=== PATIENT | female | born 2000 | race Caucasian/White ===

== ENCOUNTER → 2024-02-09 23:59 | Outpatient (BNV) | payer OTHER, SELFPAY ==
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
== END ==
PROVIDERS: PCP Nurse Practitioner Family; Visit Provider Nurse Practitioner Family
DX: Z30.09 Encounter for other general counseling and advice on contraception (principal); Z71.89 Other specified counseling; Z59.01 Sheltered homelessness; F41.9 Anxiety disorder, unspecified; F32.A Depression, unspecified
CPT/HCPCS: 96160; 99205

== ENCOUNTER → 2024-02-23 10:30 | Outpatient (BNV) | payer OTHER, SELFPAY ==
--- NOTE | 2024-02-23 10:31 | A.OFFVIS_ITS ---
Intake Visit Reasons: Amb Documentation HPI Comments Details: chiki is here 2 x - complaining of 'migraine'. she has no aura, but just a headache with photophobia and noise is bothering her given 2 aleve. 1/2 came back to rest and get away from noise. offered sleep and a cold pack. she is resting w/ cold pack and requested water. ros: otherwise no complaints. PE see below REPLACED BY [facility] Medical History Ectopic , tubal Living in snf ADHD Bipolar 1 disorder Anxiety and depression Asthma Review of Systems Const Details: no aura, though states that her eyes hurt - everytihng in her head hurts All systems reviewed & are unremarkable except as noted in HPI and below Eyes Reports as per HPI and Reports no additional complaints ENT Reports no additional complaints Card Reports no additional complaints Resp Reports no additional complaints GI Details: no Nausea or vomiting Musc Reports no additional complaints Psych Reports no additional complaints Physical Exam Const Other: squinting and holding head. walking well, no other observed issue General: cooperative and in distress Nutritional Appearance: average body habitus Orientation/consciousness: oriented to person, oriented to place and oriented to time HEENT Other: no bright lights to eyes at this time - all appears normal Ears: hearing grossly normal bilaterally Eyes General: appearance normal, both eyes and all related structures Resp Effort & Inspection: normal respiratory effort Neuro General: oriented to person, oriented to place and oriented to time Cognition (Neuro): normal cognition Gait exam (Neuro): Normal gait present Motor exam (neuro): no tremor noted Psych Appearance: grossly normal Thought process: Normal thought process present Assessment & Plan Assessment & Plan (1) Headache around the eyes: Code(s): R51.9 - Headache, unspecified Category: Medical Plan 2 aleve, and rest excused from classes Coding Level of Care Code Est Pt Level 3 (52509) Diagnoses Headache around the eyes R51.9 Time Spent (min) 25 Comment support and coord care w onsite counselor
== END ==
PROVIDERS: PCP Nurse Practitioner Family; Visit Provider Nurse Practitioner Family
DX: R51.9 Headache, unspecified (principal)
CPT/HCPCS: 99213

== ENCOUNTER 2024-03-28 11:46 | Emergency (ER) | payer OTHER, SELFPAY ==
--- NOTE | ~2024-03-28 | XR_ITS ---
EXAMINATION: XR CHEST CLINICAL INFORMATION: cough 2 weeks COMPARISON: None available. TECHNIQUE: Frontal view of the chest was obtained. FINDINGS: No consolidation, pleural effusion or pneumothorax. Poor inspiration. Cardiomediastinal silhouette is normal. Osseous structures are intact. XR/XR chest 1V IMPRESSION: No acute airspace disease based upon this x-ray. Electronically signed by: Rj Mckenna MD 03/28/2024 01:45 PM [facility]
[2024-03-28 12:26] VITALS: BP 109/51; PULSE 99; RESP 18; TEMP 36.8; O2SAT 99; BMI 28.8
--- NOTE | 2024-03-28 12:29 | ED.GENADULT ---
HPI - General Adult General Chief complaint: Upper Respiratory Symptoms Stated complaint: dizzy, cough, allergies Time Seen by Provider: 03/28/24 17:31 History of Present Illness HPI narrative: Patient complains of runny nose cough feels a little dizzy described as just feeling lightheaded sometimes especially after coughing for about a week, she is not dizzy now, she also has had some shortness of breath and wheezing typical of her asthma and is used her inhaler frequently She denies any chest pain, the cough is nonproductive, there is no blood in the sputum, there is no sore throat no difficulty swallowing there is a runny nose, there is no sinus pain, no ear pain No abdominal pain no nausea vomiting or diarrhea no dysuria or frequency, no rash no confusion no fainting no feeling faint no headache no stiff neck Related Data Previous Rx's ?Medication ?Instructions ?Recorded albuterol sulfate 2.5 mg/3 mL 2.5 mg (3 mL) inhalation Q4-6H PRN 03/28/24 (0.083 %) solution for nebulization shortness of breath or wheezing #75 mL albuterol sulfate 90 mcg/actuation 2 puff inhalation Q4-6H PRN 03/28/24 aerosol inhaler shortness of breath or wheezing #8.5 grams ibuprofen 600 mg tablet 600 mg PO Q6H PRN pain #20 tabs 03/28/24 prednisone 20 mg tablet 60 mg (3 x 20 mg) PO DAILY 5 days 03/28/24 #15 tabs Allergies Allergy/AdvReac Type Severity Reaction Status Date / Time No Known Allergies Allergy Verified 03/28/24 12:28 [facility] Past Medical History Source: nursing notes reviewed Medical History Ectopic , tubal Living in skilled nursing ADHD Bipolar 1 disorder Anxiety and depression Asthma Social History Social History Advance Directives: No Advance Directives Information Provided: Yes Do you have a plan to hurt others: No Plan Physical Exam ED Vital Signs: Vital Signs - 24 hr 03/28/24 12:26 Temperature 98.2 F Pulse Rate 99 Respiratory Rate 18 Blood Pressure 109/51 L Pulse Oximetry 99 Oxygen Delivery Method Room Air BMI result Body Mass Index 28.8 General appearance comfortable no acute distress Eyes no redness or discharge The ears are clear The pharynx is clear no redness swelling or exudate voice is normal Neck is supple The chest has mild wheezes bilateral with good full air entry no diminished breath sounds no decreased expiration no respiratory distress The heart no murmur Abdomen soft nontender Extremities full range motion x4, no calf tenderness or swelling Skin no rash Neuro gait and balance are normal, interaction comprehension and expression are normal, motor is 5/5 x4 sensation is intact and symmetrical cranial nerves 2-12 intact as tested, cerebellar exam with [id number] is totally normal Course Course Course Narrative: This is a rapid medical exam performed by Isaias Lau NP: Additional HPI, ROS, PE not included below will be deferred to primary provider. Patient is a 24-year-old female presenting with complaint of cough, congestion, dizziness for over a week. Covid test at home was neg. Plan: viral and strep swabs, cxr Chest x-ray was normal with no evidence of pneumonia and patient's lungs were clear at this time no respiratory distress The viral panel including COVID and flu and strep was negative test was negative Patient was very well-appearing and likely has a viral illness with a mild asthma flare Dizziness was not room spinning no syncope no headache no neurologic deficit no fainting or feeling faint no palpitations and was only after coughing spells so not likely to be cardiac or neurologic Medical Decision Making Lab Data Labs: Lab Results 03/28/24 03/28/24 Range/Units 13:22 14:08 Urine Test NEGATIVE (NEGATIVE) Influenza Type A (PCR) NEGATIVE (Negative) Influenza Type B (PCR) NEGATIVE (Negative) RSV RNA Qual (PCR) NEGATIVE (Negative) SARS-CoV-2 RNA (RT-PCR) NEGATIVE (Negative) S. pyogenes GrpA GARY Negative (Negative) Discharge Plan Discharge Clinical Impression: Upper respiratory infection, Asthma Patient Disposition: Home, Self-Care Additional Instructions: Your chest x-ray was negative, your viral testing for COVID and flu was negative, your physical exam and vital signs were fine Likely you have a mild asthma flare caused by a cold or mild viral infection Return any time for difficulty breathing any worse condition any concerns You can use Tylenol or Motrin if needed for any fevers or body aches Drink plenty of fluids We prescribed prednisone which will reduce inflammation that causes wheezing and asthma as well as albuterol Prescriptions: New prednisone 20 mg tablet 60 mg PO DAILY 5 Days Qty: 15 0RF albuterol sulfate 90 mcg/actuation HFA aerosol inhaler 2 puff inhalation Q4-6H PRN (Reason: shortness of breath or wheezing) Qty: 8.5 0RF albuterol sulfate 2.5 mg /3 mL (0.083 %) solution for nebulization 2.5 mg inhalation Q4-6H PRN (Reason: shortness of breath or wheezing) Qty: 75 0RF ibuprofen 600 mg tablet 600 mg PO Q6H PRN (Reason: pain) Qty: 20 0RF Print Language: Brazilian
[2024-03-28 14:00] LABS: IDNOW Serial# 08D9AD1C; Strep A Nucleic Acid Negative (Negative)
[2024-03-28 14:06] LABS: Influenza A PCR NEGATIVE (Negative); Influenza B PCR NEGATIVE (Negative); Resp Syncy Virus RNA Qual PCR NEGATIVE (Negative); SARS COV2 PCR INHOUSE NEGATIVE (Negative)
[2024-03-28 14:16] LABS: UPreg QC Valid YES; Urine Pregnancy NEGATIVE (NEGATIVE)
== END 2024-03-28 18:54 | disposition home or self-care (01) ==
PROVIDERS: Registered Nurse Emergency; Emergency Provider Emergency Medicine; PCP Nurse Practitioner Family
DX: J06.9 Acute upper respiratory infection, unspecified (principal); J45.909 Unspecified asthma, uncomplicated; R05.9 Cough, unspecified
CPT/HCPCS: 0241U; 71045; 81025; 87651; 99282; 99283

== ENCOUNTER → 2024-03-28 12:30 | Outpatient (BNV) | payer OTHER, SELFPAY | PROVIDERS: PCP Nurse Practitioner Family; Visit Provider Radiology Diagnostic Radiology | DX: R05.9 Cough, unspecified (principal) | CPT/HCPCS: 71045 ==

== ENCOUNTER → 2024-04-17 10:38 | Outpatient (BNV) | payer OTHER, SELFPAY ==
--- NOTE | 2024-04-17 10:38 | A.OFFVIS_ITS ---
Intake Visit Reasons: Amb Documentation Allergies No Known Allergies Allergy (Verified 03/28/24 12:28) HPI Comments Details: student stops from class (2x) in complaining of unbearable jaw pain. she had a root canal and is now waiting for more work to be done. she has a hole in her tooth on the lower molars. she states that she is not but is no longer celibate. 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 she took 3 ibuprofen and used dentak on the pain. with relief. she come back in 1/2 hr to say that she has a new lump under her tongue - it is a normal variant but she is vigilant because of the numbing - no concerns [facility] Medical History Ectopic , tubal Living in [facility] ADHD Bipolar 1 disorder Anxiety and depression Asthma Social History Advance Directives: No Advance Directives Information Provided: Yes Do you have a plan to hurt others: No Plan Review of Systems Const Details: Counseling visit: All systems reviewed & are unremarkable except as noted in HPI and below Reports as per HPI Resp Reports as per HPI GI Reports as per HPI Musc Reports as per HPI Neuro Reports as per HPI Psych Reports as per HPI Physical Exam Const General: cooperative, healthy appearing and in distress (uncomfortble w/ jaw pain) moderate Nutritional Appearance: well nourished Orientation/consciousness: oriented to person Limitations: no limitations HEENT Mouth: Normal oral and palatal mucosa present, tongue normal and moist mucous membranes Teeth and gingiva: fair dentition (hole in ?30 otherwise everything looks ok no redness, swelling, odor) Throat: Yes posterior oropharynx normal Eyes Other: wnl Chest Other: easy breathing Resp Effort & Inspection: normal respiratory effort and able to speak in complete sentences Skin Other: normal in appearance Neuro General: oriented to person Psych Other: see HPI Appearance: grossly normal Mental Status: mental status grossly normal Speech and movement: Clear speech present Affect: Anxious affect present Attitude: cooperative Thought process: Normal thought process present Assessment & Plan Assessment & Plan (1) Jaw pain, non-TMJ: Code(s): R68.84 - Jaw pain Category: Medical (2) Nontraumatic broken or cracked tooth: Code(s): K03.81 - Cracked tooth Category: Medical Plan ibuprofen x 3 now and dentak applied. returned to my office w/ questions about area under tongue. no concerns. suggested that she sign up tomorrow (coming out of class on a pass at moment) to discuss control as she stated ca sually that she is no longer celibate Coding Level of Care Code Est Pt Level 3 (34804) Diagnoses Jaw pain, non-TMJ R68.84 Nontraumatic broken or cracked tooth K03.81 Time Spent (min) 25 Comment 2 visits - counseling and coord care w/ her onsite counselor
== END ==
PROVIDERS: PCP Nurse Practitioner Family; Visit Provider Nurse Practitioner Family
DX: R68.84 Jaw pain (principal); K03.81 Cracked tooth
CPT/HCPCS: 99213

== ENCOUNTER → 2024-04-18 10:14 | Outpatient (BNV) | payer OTHER, SELFPAY ==
--- NOTE | 2024-04-18 10:14 | A.OFFVIS_ITS ---
Intake Visit Reasons: Amb Documentation Allergies No Known Allergies Allergy (Verified 03/28/24 12:28) HPI Comments Details: student stopping in - 'i don't really want to talk a bout control'. she has dental pain still but it seems better - she agreed to take 400mg ibuprofen now- and has extra to take later (yesterday rec'd call re: student wanted to take more - called dentist and they didn't make any recommendations) she has a follow up in 1 month. she states re: control that she doesn't like the hormones, and if she were to get - it would be ok. she is with someone she has known for a long time but doesn't really care for him...it's just for fun. he uses condoms but 2 weeks ago, it fell off and he continued having sex. she would chance plan b if she had it but couldn't afford it. agreed to my putting in an rx and she will take it as a back up - not as regular control. longer conversation about creating family w/ man that she 'doesn't see in that way'. [facility] Medical History Ectopic , tubal Living in penitentiary ADHD Bipolar 1 disorder Anxiety and depression Asthma Social History Advance Directives: No Advance Directives Information Provided: Yes Do you have a plan to hurt others: No Plan Review of Systems Const Details: Counseling visit: All systems reviewed & are unremarkable except as noted in HPI and below Reports as per HPI Resp Reports as per HPI GI Reports as per HPI Musc Reports as per HPI Neuro Reports as per HPI Psych Reports as per HPI Physical Exam Const General: cooperative, healthy appearing and no acute distress Nutritional Appearance: well nourished Orientation/consciousness: oriented to person Limitations: no limitations HEENT Other: wnl Eyes Other: wnl Chest Other: easy breathing Resp Effort & Inspection: able to speak in complete sentences Skin Other: normal in appearance Neuro General: oriented to person Psych Other: see HPI Mental Status: mental status grossly normal Speech and movement: Clear speech present Attitude: cooperative Thought process: Normal thought process present Assessment & Plan Assessment & Plan (1) control counseling: Code(s): Z30.09 - Encounter for other general counseling and advice on contraception Category: Medical (2) Counseling and coordination of care: Code(s): Z71.89 - Other specified counseling Category: Medical (3) Living in penitentiary: Code(s): Z59.01 - Sheltered homelessness Category: Social Hx (4) Jaw pain, non-TMJ: Code(s): R68.84 - Jaw pain Category: Medical Plan extensive counseling - and coord care w/ her on-site counselor as the control decison is a bit imperfect for her lifestyle...consistent w/ her thinking. given ibuprofen for pain now and teachign re: further intervention - needs dental appt. Medications: New levonorgestrel (Plan B One-Step) 1.5 mg PO ONCE 1 tab 6RF Coding Level of Care Code Est Pt Level 4 (31717) Diagnoses control counseling Z30.09 Counseling and coordination of care Z71.89 Living in penitentiary Z59.01 Jaw pain, non-TMJ R68.84 Time Spent (min) 30 Comment counseling/coord care w onsite production support analyst
== END ==
PROVIDERS: PCP Nurse Practitioner Family; Visit Provider Nurse Practitioner Family
DX: Z30.09 Encounter for other general counseling and advice on contraception (principal); Z71.89 Other specified counseling; Z59.01 Sheltered homelessness; R68.84 Jaw pain
CPT/HCPCS: 99214

== ENCOUNTER → 2024-04-25 10:14 | Outpatient (BNV) | payer OTHER, SELFPAY ==
--- NOTE | 2024-04-25 10:14 | MHC.OFFVIS ---
Intake Visit Reasons: Amb Documentation Allergies No Known Allergies Allergy (Verified 03/28/24 12:28) HPI Comments Details: student is in counselors office - she wanted to sign up for me for concerns but just urinated (and has arrived in school late)...david states that she is distressed and needing mental health supports - she declines talking at length at the moment as she need to get to class and doesn't want to get more upset. I reviewed her phq 9 and crafft. [facility] Medical History Ectopic , tubal Living in group home ADHD Bipolar 1 disorder Anxiety and depression Asthma Social History Advance Directives: No Advance Directives Information Provided: Yes Do you have a plan to hurt others: No Plan Review of Systems Const Details: Counseling visit: All systems reviewed & are unremarkable except as noted in HPI and below Reports as per HPI Resp Reports as per HPI GI Reports as per HPI Musc Reports as per HPI Neuro Reports as per HPI Psych Reports as per HPI Physical Exam Const General: cooperative, healthy appearing and in distress (seems stressed and tears w/ minor discussion about it) moderate Nutritional Appearance: well nourished Orientation/consciousness: oriented to person Limitations: no limitations HEENT Other: wnl Eyes Other: wnl Chest Other: easy breathing Resp Effort & Inspection: able to speak in complete sentences Skin Other: normal in appearance Neuro General: oriented to person Psych Other: see HPI Mental Status: mental status grossly normal Speech and movement: Clear speech present Attitude: cooperative Thought process: Normal thought process present Quality Reporting (2019) Depression/Bipolar (159/160/161/177) PHQ-9: Total score: 18 Assessment & Plan Assessment & Plan (1) Counseling and coordination of care: Code(s): Z71.89 - Other specified counseling Category: Medical (2) Living in group home: Code(s): Z59.01 - Sheltered homelessness Category: Social Hx (3) Anxiety and depression: Code(s): F41.9 - Anxiety disorder, unspecified; F32.A - Depression, unspecified Category: Medical (4) control counseling: Code(s): Z30.09 - Encounter for other general counseling and advice on contraception Category: Medical Plan spoke at length w/ leonard langley her onsite counselor - she is engaged in more direct support. we will network around her as things seem a bit unstable and she has a lot of vulnerability. she will sign up for me tmorrow if she wants to discuss in more detail risk - still unclear - she and partner use condoms and she has plan b but hasn't had normal period yet. - she will return for this test if desired tomorrow Coding Level of Care Code Est Pt Level 3 (61087) Diagnoses Counseling and coordination of care Z71.89 Living in group home Z59.01 Anxiety and depression F41.9; F32.A control counseling Z30.09 Additional Codes PHQ-9 - 88308 - PHQ-9 Billing: Yes ([id number]) HECTOR Assessment Charge - Liliant: HECTOR [id number] ([id number]) Time Spent (min) 25 Comment counseling and coord care w/ onsite staff PHQ-9 Over the last 2 weeks, how often have you been bothered by any of the following problems? 1. Little interest or pleasure in doing things: several days 2. Feeling down, depressed, or hopeless: more than half the days 3. Trouble falling or staying asleep, or sleeping too much: nearly every day 4. Feeling tired or having little energy: nearly every day 5. Poor appetite or overeating: nearly every day 6. Feeling bad about yourself - or that you are a failure or have let yourself or your family down: not at all 7. Trouble concentrating on things, such as reading the newspaper or watching television: nearly every day 8. Moving or speaking so slowly that other people could have noticed. Or the opposite - being so fidgety or restless that you have been moving around a lot more than usual: nearly every day 9. Thoughts that you would be better off or of hurting yourself in some way: not at all Total score: 18 Depression Screening Interpretation: Positive Depression Screening Done: Yes 30685 - PHQ-9 Billing: Yes Source: Developed by Drs. Caesar Estrada, Rosaura Carlson, Ceasar Mix and colleagues, with an educational nickie from [employer]. LILIANT Screening Tool PART A: In the PAST 12 MONTHS, did you: Drink any alcohol (more than few sips)? (Do not count sips of alcohol taken during family or methodist events.): Yes Smoke any marijuana or hashish?: Yes Use anything else to get high? (includes illegal drugs, over the counter/prescription drugs, or things that you sniff/somers?): No PART B: If answered YES to ANY above: Have you ever been in a CAR driven by someone (including yourself) who was high or had been using alcohol or drugs?: No Do you ever use alcohol or drugs to RELAX, feel better about yourself, or fit in?: Yes Do you ever use alcohol or drugs while you are by yourself, or ALONE?: No Do you ever FORGET things while using alcohol or drugs?: No Do your FAMILY or FRIENDS ever tell you that you should cut down on your drinking or drug use?: No Have you ever gotten into TROUBLE while you were using alcohol or drugs?: No details: by relax she clarifies she uses cannabis to sleep sometimes (30 times in a year) HECTOR Assessment Charge Hector: HECTOR [id number]
== END ==
PROVIDERS: PCP Nurse Practitioner Family; Visit Provider Nurse Practitioner Family
DX: F41.9 Anxiety disorder, unspecified (principal); Z71.89 Other specified counseling; Z59.01 Sheltered homelessness; F32.A Depression, unspecified; Z30.09 Encounter for other general counseling and advice on contraception
CPT/HCPCS: 96127; 96160; 99213

== ENCOUNTER → 2024-04-26 10:08 | Outpatient (BNV) | payer OTHER, SELFPAY ==
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
== END ==
PROVIDERS: PCP Nurse Practitioner Family; Visit Provider Nurse Practitioner Family
DX: N92.6 Irregular menstruation, unspecified (principal); F41.9 Anxiety disorder, unspecified; F32.A Depression, unspecified; Z59.01 Sheltered homelessness; Z71.89 Other specified counseling; Z30.09 Encounter for other general counseling and advice on contraception
CPT/HCPCS: 99215

== ENCOUNTER 2024-04-26 12:18 | Outpatient (REF) | payer OTHER, SELFPAY ==
[2024-04-26 13:56] LABS: HCG Quantitative < 2 mIU/mL
== END 2024-04-26 12:19 | disposition home or self-care (01) ==
LOC: HO.LAB 12:18
PROVIDERS: Visit Provider Nurse Practitioner Family
DX: N92.6 Irregular menstruation, unspecified (principal)
CPT/HCPCS: 36415; 84702

== ENCOUNTER → 2024-06-06 09:54 | Outpatient (BNV) | payer OTHER, SELFPAY ==
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
== END ==
PROVIDERS: PCP Nurse Practitioner Family; Visit Provider Nurse Practitioner Family
DX: F41.9 Anxiety disorder, unspecified (principal); F32.A Depression, unspecified; Z71.89 Other specified counseling; Z59.01 Sheltered homelessness; O09.10 Supervision of pregnancy with history of ectopic pregnancy, unspecified trimester
CPT/HCPCS: 99214

== ENCOUNTER → 2024-07-11 10:05 | Outpatient (BNV) | payer OTHER, SELFPAY ==
--- NOTE | 2024-07-11 10:05 | A.OFFVIS_ITS ---
Intake Visit Reasons: Amb Documentation Allergies No Known Allergies Allergy (Verified 03/28/24 12:28) HPI Comments Details: student coming in looking for doc for her baby and needing immunizations as daycare is noting that he is out of date. long conversation about this and reached out to antonio wong to see how long a wait, and researched [facility] will do immunizations. Kirsty Dean - invovled and will help getting this all done. meanwhile talked w/ student about her - she is no longer - she miscarried and was sad. even though she hadn't planned on she got attached to the idea. her current baby's father - was angry initially but adjusted and she feels he would have supported her. they are working on their relationship. she is concenred that she can't maintain a as she's had 2 ectopics and 1 miscarriage. a MW at told her that she would support her when she was ready and felt that she had no reason to not be able to carry . she wonders if it was she drank, or gets high (1 blunt a day - just at night and in the morning . discussed the use of cannabis as being an unknown w/ regards to fertility and . she states that she wants to cut down - so we discussed a goal of being healthy (mind and body) and working on healthy relationship and finishing school (her goal) as being the things to work on . she prays and find this helps her settle her worries too. she went back to work w/ kirsty on getting changes in insurance and work on getting PCP for herself and baby [facility] Medical History with history of ectopic Ectopic , tubal Living in half-way ADHD Bipolar 1 disorder Anxiety and depression Asthma Review of Systems Const Details: Counseling visit: All systems reviewed & are unremarkable except as noted in HPI and below Reports as per HPI Resp Reports as per HPI GI Reports as per HPI Musc Reports as per HPI Neuro Reports as per HPI Psych Reports as per HPI Physical Exam Const General: cooperative, healthy appearing and no acute distress Nutritional Appearance: well nourished Orientation/consciousness: oriented to person Limitations: no limitations HEENT Other: wnl Eyes Other: wnl Chest Other: easy breathing Resp Effort & Inspection: able to speak in complete sentences Skin Other: normal in appearance Neuro General: oriented to person Psych Other: see HPI Mental Status: mental status grossly normal Speech and movement: Clear speech present Attitude: cooperative Thought process: Normal thought process present Assessment & Plan Assessment & Plan (1) Irregular menses: Code(s): N92.6 - Irregular menstruation, unspecified Category: Medical (2) control counseling: Code(s): Z30.09 - Encounter for other general counseling and advice on contraception Category: Medical (3) Counseling and coordination of care: Code(s): Z71.89 - Other specified counseling Category: Medical (4) Living in half-way: Code(s): Z59.01 - Sheltered homelessness Category: Social Hx (5) Anxiety and depression: Code(s): F41.9 - Anxiety disorder, unspecified; F32.A - Depression, unspecified Category: Medical (6) Grief associated with loss of fetus: Comment: mild, but need support - third lost Code(s): F43.21 - Adjustment disorder with depressed mood Category: Medical Plan extensive counseling and support and coordination of care needed for this vulnerable family Coding Level of Care Code Est Pt Level 5 (42310) Diagnoses Irregular menses N92.6 control counseling Z30.09 Counseling and coordination of care Z71.89 Living in half-way Z59.01 Anxiety and depression F41.9; F32.A Grief associated with loss of fetus F43.21 Time Spent (min) 60 Comment extensive counseling and coordination of care/services
== END ==
PROVIDERS: PCP Nurse Practitioner Family; Visit Provider Nurse Practitioner Family
DX: N92.6 Irregular menstruation, unspecified (principal); Z30.09 Encounter for other general counseling and advice on contraception; Z71.89 Other specified counseling; Z59.01 Sheltered homelessness; F41.9 Anxiety disorder, unspecified; F32.A Depression, unspecified; F43.21 Adjustment disorder with depressed mood
CPT/HCPCS: 99215; 99417

== ENCOUNTER → 2024-07-19 10:29 | Outpatient (BNV) | payer OTHER, SELFPAY ==
--- NOTE | 2024-07-19 10:29 | MHC.OFFVIS ---
Intake Visit Reasons: Amb Documentation Allergies No Known Allergies Allergy (Verified 03/28/24 12:28) HPI Comments Details: follow up on depression. PHQ 20 though indicatves a slight improvement. She has had a loss and is struggling w/ housing. counselor states that her life is blowing up at moment, she has services on board - therapist and on-site couselor working w/ her extensively [facility] Medical History with history of ectopic Ectopic , tubal Living in correction ADHD Bipolar 1 disorder Anxiety and depression Asthma Review of Systems Const Details: Counseling visit: All systems reviewed & are unremarkable except as noted in HPI and below Reports as per HPI Resp Reports as per HPI GI Reports as per HPI Musc Reports as per HPI Neuro Reports as per HPI Psych Reports as per HPI Physical Exam Const General: cooperative, healthy appearing and no acute distress Nutritional Appearance: well nourished Orientation/consciousness: oriented to person Limitations: no limitations HEENT Other: wnl Eyes Other: wnl Chest Other: easy breathing Resp Effort & Inspection: able to speak in complete sentences Skin Other: normal in appearance Neuro General: oriented to person Psych Other: see HPI Mental Status: mental status grossly normal Speech and movement: Clear speech present Attitude: cooperative Thought process: Normal thought process present Quality Reporting (2019) Depression/Bipolar (159/160/161/177) PHQ-9: Total score: 20 Assessment & Plan Assessment & Plan (1) Grief associated with loss of fetus: Comment: mild, but need support - third lost Code(s): F43.21 - Adjustment disorder with depressed mood Category: Medical (2) Counseling and coordination of care: Code(s): Z71.89 - Other specified counseling Category: Medical (3) Anxiety and depression: Code(s): F41.9 - Anxiety disorder, unspecified; F32.A - Depression, unspecified Category: Medical (4) Living in correction: Code(s): Z59.01 - Sheltered homelessness Category: Social Hx Plan extensive support continues - she is meeting w/ onsite counselor at the moment to work on social/environmental issues that are contributing to her mood instability. Coding Level of Care Code Est Pt Level 2 (97588) Diagnoses Grief associated with loss of fetus F43.21 Counseling and coordination of care Z71.89 Anxiety and depression F41.9; F32.A Living in correction Z59.01 Additional Codes PHQ-9 - 95868 - PHQ-9 Billing: Yes ([id number]) BENITO Assessment Charge - Stefaniet: BENITO [id number] ([id number]) Time Spent (min) 15 Comment counseling and coord care PHQ-9 Over the last 2 weeks, how often have you been bothered by any of the following problems? 1. Little interest or pleasure in doing things: nearly every day 2. Feeling down, depressed, or hopeless: nearly every day 3. Trouble falling or staying asleep, or sleeping too much: nearly every day 4. Feeling tired or having little energy: nearly every day 5. Poor appetite or overeating: nearly every day 6. Feeling bad about yourself - or that you are a failure or have let yourself or your family down: more than half the days 7. Trouble concentrating on things, such as reading the newspaper or watching television: nearly every day 8. Moving or speaking so slowly that other people could have noticed. Or the opposite - being so fidgety or restless that you have been moving around a lot more than usual: not at all 9. Thoughts that you would be better off or of hurting yourself in some way: not at all Total score: 20 Depression Screening Interpretation: Positive (services on board) Depression Screening Follow-up: Existing condition and In treatment Depression Screening Done: Yes 69059 - PHQ-9 Billing: Yes Source: Developed by Drs. Caesar Estrada, Rosaura Carlson, Ceasar Mix and colleagues, with an educational nickie from [employer]. ALEJANDROFFT Screening Tool PART A: In the PAST 12 MONTHS, did you: Drink any alcohol (more than few sips)? (Do not count sips of alcohol taken during family or samaritan events.): No Smoke any marijuana or hashish?: Yes Use anything else to get high? (includes illegal drugs, over the counter/prescription drugs, or things that you sniff/somers?): No PART B: If answered YES to ANY above: Have you ever been in a CAR driven by someone (including yourself) who was high or had been using alcohol or drugs?: No Do you ever use alcohol or drugs to RELAX, feel better about yourself, or fit in?: No Do you ever use alcohol or drugs while you are by yourself, or ALONE?: Yes Do you ever FORGET things while using alcohol or drugs?: Yes Do your FAMILY or FRIENDS ever tell you that you should cut down on your drinking or drug use?: Yes Have you ever gotten into TROUBLE while you were using alcohol or drugs?: Yes details: uses cannabis to sleep. has services for depression, living in correction BENITO Assessment Charge Crafft: BENITO [id number]
== END ==
PROVIDERS: PCP Nurse Practitioner Family; Visit Provider Nurse Practitioner Family
DX: F43.21 Adjustment disorder with depressed mood (principal); Z71.89 Other specified counseling; F41.9 Anxiety disorder, unspecified; F32.A Depression, unspecified; Z59.01 Sheltered homelessness
CPT/HCPCS: 96127; 96160; 99212

== ENCOUNTER → 2024-07-31 10:02 | Outpatient (BNV) | payer OTHER, SELFPAY ==
--- NOTE | 2024-07-31 10:02 | MHC.OFFVIS ---
Intake Visit Reasons: Amb Documentation Allergies No Known Allergies Allergy (Verified 03/28/24 12:28) HPI Comments Details: student coming for second visit (saw previous nurse practitioner - under different system on Wednesday) complaining of transient abdominal pain. pointing to upper left quadrant and lower center quadrant. she states that she is 'farting and pooping' fine. but feels it is gurgling and churning. and comes and goes. previous nurse gave omeprazole and 2 tums. she didn't take the omeprazole - she took 2 tums and found it helped but it returned. she denies all attempts to reassure her that this is likely gas, transient - food related, stress related, viral related. she is concerned that it is related to ovarian cyst tendency (she's had 2, and doens't understand if they were the same one, or different ones). she accepts 2 tums again. she appears in minimal distress - almost none, but states that it is REALLY bad. So I suggested that if she continues w/ concenrs that she must go to medical office and get checked. internal pelvic exam or USN. she took tums and is seen walking around building. no concenrs about as she is not sexually active. [facility] Medical History with history of ectopic Ectopic , tubal Living in snf ADHD Bipolar 1 disorder Anxiety and depression Asthma Review of Systems Const All systems reviewed & are unremarkable except as noted in HPI and below Physical Exam Const General: healthy appearing and no acute distress Nutritional Appearance: average body habitus Orientation/consciousness: patient oriented x3 HEENT Other: wnl Resp Effort & Inspection: normal respiratory effort Cardio Other: NSR Rate: regular rate Rhythm: regular rhythm Heart sounds: S1 normal heart sound present and S2 normal heart sound present GI Other: slight bloating. Inspection: Yes normal to inspection Palpation (GI): Soft to palpation and No hepatosplenomegaly present Percussion: Yes tympanic to percussion Auscultation: Hyperactive bowel sounds present Neuro General: patient oriented x3 Psych Appearance: grossly normal and well kempt Affect: Anxious affect present (mildly) Assessment & Plan Assessment & Plan (1) Counseling and coordination of care: Code(s): Z71.89 - Other specified counseling Category: Medical (2) Abdominal pain, generalized: Code(s): R10.84 - Generalized abdominal pain Category: Medical (3) Anxiety and depression: Code(s): F41.9 - Anxiety disorder, unspecified; F32.A - Depression, unspecified Category: Medical Plan extensive counseling and coordination w/ her on-site counselor. tums given again, and second dose for later. she is seen walking around without issue. support to anxiety given - this seems the larger issue - discussed /w counselor Coding Level of Care Code Est Pt Level 4 (48621) Diagnoses Counseling and coordination of care Z71.89 Abdominal pain, generalized R10.84 Anxiety and depression F41.9; F32.A Time Spent (min) 35 Comment extensive counseling and coord care
== END ==
PROVIDERS: PCP Nurse Practitioner Family; Visit Provider Nurse Practitioner Family
DX: R10.84 Generalized abdominal pain (principal); F41.9 Anxiety disorder, unspecified; F32.A Depression, unspecified; Z71.89 Other specified counseling
CPT/HCPCS: 99214

== ENCOUNTER 2025-04-20 15:19 | Emergency (ER) | payer MEDICAID, SELFPAY ==
--- NOTE | ~2025-04-20 | US_ITS ---
CLINICAL HISTORY: elevated HCG, pain US OB 1st Trimester transabdominal and transvaginal Comparison: None provided Findings: No evidence of intrauterine . No intrauterine gestational sac, yolk sac or pole. Left ovary demonstrates a 1.3 x 0.9 x 1.4 cm thick wall cystic structure with peripheral hyperemia is seen. Additionally hyperechoic left ovarian lesion measuring 0.8 x 0.7 x 0.8 cm. Left ovary measures 2.6 x 1.3 x 2.8 cm. Right ovary measures 2.3 x 1.6 x 1.8 cm. A hyperechoic lesion within the right ovary measuring 0.4 x 0.3 x 0.5 cm IMPRESSION: No sonographic evidence of intrauterine . A 1.3 cm thick wall cystic structure within the left ovary with peripheral hyperemia. Differentials include corpus luteal cyst versus ectopic . Short-term follow-up is recommended with serial beta hCG. Bilateral adnexal hyperechoic subcentimeter lesions which may represent hemorrhagic cysts versus dermoid cyst. This document has been electronically signed by: Brittny Guzman MD on 04/20/2025 20:26:56
[2025-04-20 15:35] VITALS: BP 131/60; PULSE 74; RESP 18; TEMP 36.3; O2SAT 98; BMI 30.8
--- NOTE | 2025-04-20 15:37 | ED.GENADULT ---
HPI - General Adult General Chief complaint: Vaginal Bleeding Stated complaint: Vaginal Issues Time Seen by Provider: 04/20/25 20:30 Source: patient, RN notes reviewed and old records reviewed Mode of arrival: ambulatory Limitations: no limitations History of Present Illness ED Provider: Floridalma HOUSE narrative: 25-year-old female with past medical history significant for asthma presents for evaluation of pelvic pain, vaginal bleeding. The patient reports that she is about 3 weeks . Plan she states that she has had 2 previous ectopic pregnancies, 1 miscarriage and 1 childbirth. She is . She believes that she has retained both of her ovaries but they resected her right fallopian tube the patient reports that she had an outpatient lab with an hCG yesterday of 49 She reports that she was told to come to the hospital today to recheck an hCG and possibly have an ultrasound. she reports vaginal bleeding for a couple of days with pelvic cramping. Denies any fevers or chills. No other complaints or concerns at this time Related Data Previous Rx's ?Medication ?Instructions ?Recorded albuterol sulfate 2.5 mg/3 mL 2.5 mg (3 mL) inhalation Q4-6H PRN 03/28/24 (0.083 %) solution for nebulization shortness of breath or wheezing #75 mL albuterol sulfate 90 mcg/actuation 2 puff inhalation Q4-6H PRN 03/28/24 aerosol inhaler shortness of breath or wheezing #8.5 grams ibuprofen 600 mg tablet 600 mg PO Q6H PRN pain #20 tabs 03/28/24 prednisone 20 mg tablet 60 mg (3 x 20 mg) PO DAILY 5 days 03/28/24 #15 tabs levonorgestrel 1.5 mg tablet (Plan 1.5 mg PO ONCE #1 tab 04/18/24 B One-Step) Allergies Allergy/AdvReac Type Severity Reaction Status Date / Time No Known Allergies Allergy Verified 04/20/25 15:41 Review of Systems Constitutional: Constitutional: Denies body ache(s), Denies chills, Denies fever(s) and Denies headache(s) Eyes: Eyes: Denies blurry vision ENT: Denies vertigo, Denies dizziness and Denies headache(s) Cardiovascular: Cardiovascular: Denies chest pain and Denies dyspnea on exertion Respiratory: Respiratory: Denies cough and Denies dyspnea on exertion Gastrointestinal: Gastrointestinal: Reports abdominal pain, Denies nausea and Denies vomiting Genitourinary: Genitourinary: Reports pelvic pain Comments: vaginal bleeding Integumentary/Breasts: Skin/Breast: Denies rash Neurologic: Denies vertigo, Denies dizziness and Denies headache(s) Psychiatric: Psychiatric: Denies anxiety PMFSH Past Medical History Medical History with history of ectopic Ectopic , tubal Living in jail ADHD Bipolar 1 disorder Anxiety and depression Asthma Social History Social History Advance Directives: No Advance Directives Information Provided: No Do you have a plan to hurt others: No Plan Physical Exam ED Vital Signs: Vital Signs - 24 hr 04/20/25 15:35 04/20/25 20:12 Temperature 97.4 F 98.2 F Pulse Rate 74 75 Respiratory Rate 18 14 Blood Pressure 131/60 112/57 L Pulse Oximetry 98 97 Oxygen Delivery Method Room Air Room Air BMI result Body Mass Index 30.8 Const General: healthy appearing, comfortable, no acute distress, alert and awake Nutritional Appearance: well nourished Orientation/consciousness: patient oriented x3 HENMT Head: Yes normocephalic and Yes atraumatic Eyes Eyelids: Yes eyelids normal Conjunctivae: conjunctivae normal Sclerae: sclerae normal Corneas: corneas normal Pupils: Equal, round and reactive pupils present EOM: EOMs intact bilaterally Neck Neck: Yes full ROM Resp Effort & Inspection: normal respiratory effort, able to speak in complete sentences and not labored Cardio Rate: regular rate Rhythm: regular rhythm GI Inspection: No distended Palpation (GI): Soft to palpation, not firm, no guarding and not rigid Speculum Exam - Cervix: normal appearance of the cervix, normal palpation and Abnormal cervical discharge present ( ) bloody Bimanual exam- vagina & uterus: uterine size normal, normal palpation and no cervical motion tenderness Bimanual Exam- Adnexa, other: no masses, tender on the right; not on the left, No cul-de-sac fullness and No cul-de-sac tenderness Skin General skin exam: no rashes or lesions noted and elasticity normal Neuro General: patient oriented x3 Cranial nerves: Yes CN's II-XII intact bilaterally, Yes Equal, round and reactive pupils present and Yes Bilaterally intact EOM present Cognition (Neuro): normal cognition Extrem Other: Moving all extremities well without any obvious deformities Course Course Course Narrative: Rapid medical examination performed in triage by Doris Hutchinson PA-C: Patient is a 25 year old assigned female at presenting to the emergency department with early and abdominal pain + vaginal bleeding. Patient states that she was told she is in early and needs to be evaluated for vaginal bleeding + abdominal pain. Patient states that she has had several pregnancies including miscarriages and ectopics. Detailed physical exam and review of systems are deferred to the welder/installer. Labs ordered. Patient placed back in the waiting room pending room availability and results. Reevaluation(s) Reevaluation #1: Discussed with Dr Suresh Oshea, at [facility], who accepts transfer of care for the patient, he would like the images uploaded to file sharing system which I have asked Radiology to complete and the patient can be discharged to [facility] Time: 22:31 Medical Decision Making Medical Decision Making [facility] Narrative: 25-year-old female with a complicated OBGYN history presents for evaluation of vaginal bleeding and pelvic pain. She has an hCG of 50 today, she reports it was 49 yesterday. Ultrasound shows a cystic structure in the left ovary that could not rule out ectopic versus corpus luteum cyst. Given the low hCG I think it is most likely the patient is having a spontaneous . However the patient has had 2 previous ectopics in his extremely high risk for ectopic . She does not have any significant left adnexal tenderness on exam. she is hemodynamically stable. Her blood type is O positive and she does not require RhoGAM. I discussed this case with our OBGYN attending, Dr Flores. he reports that the patient may be offered methotrexate versus an observation. Unfortunately we can not offer either of those services this facility and he recommends transfer. We will discuss with [facility] Differential Diagnosis Differential Diagnoses: The differential diagnosis associated with the presentation includes spontaneous Missed Early Ectopic Admission/Observation Consideration of admission/observation: Escalation of care including admission/observation considered Consult Healthcare Provider Management of the patient was discussed with: Insulator Technician Lab Data [facility] Lab Attestation statement: I reviewed the patient's lab results. no leukocytosis or anemia. Normal platelet count. No electrolyte abnormalities warranting dimension hCG of 50 04/20/25 17:15 12/05/25 17:15 Labs: Lab Results 04/20/25 04/20/25 04/20/25 Range/Units 17:15 20:46 21:08 WBC 9.2 (4.8-10.8) X10*3/uL RBC 4.47 (4.20-5.50) X10*6/uL Hgb 12.9 (12.0-16.0) g/dl Hct 38.0 (37.0-47.0) % MCV 85.0 (80.0-98.0) fL MCH 28.9 (27.0-33.0) pg MCHC 33.9 (31.0-35.0) g/dl RDW 11.7 (11.0-16.0) % Plt Count 366 (160-400) X10*3/uL MPV 9.8 (9.4-12.3) fL Immature Gran % (Auto) 0.3 (0.0-0.4) % Neut % (Auto) 69.0 (45-73) % Lymph % (Auto) 22.4 (20-40) % Owen % (Auto) 7.4 (2-11) % Eos % (Auto) 0.5 (0-4) % Baso % (Auto) 0.4 (0-2) % Lymph # (Auto) 2.1 (1.2-4.9) X10*3/uL Owen # (Auto) 0.7 (0.1-1.2) X10*3/uL Eos # (Auto) 0.1 (0.0-0.4) X10*3/uL Baso # (Auto) 0.0 (0.0-0.2) X10*3/uL Abs Immat Gran (auto) 0.03 (0.00-0.03) X10*3/uL Absolute Neuts (auto) 6.4 (2.0-8.3) x10*3/uL Absolute Nucleated RBC 0.000 (0.0-0.012) X10*3/uL Nucleated RBC % (auto) 0.0 (0.0-0.2) /100WBC PT 13.2 (11.2-13.5) SEC INR 1.1 (0.9-1.1) Sodium 141 (135-145) mmol/L Potassium 3.8 (3.3-5.1) mmol/L Chloride 108 (96-108) mmol/L Carbon Dioxide 27 (22-29) mmol/L Anion Gap 10 L (12-20) BUN 13 (9-16) mg/dL Creatinine 0.65 (0.5-1.4) mg/dL Estim Creat Clear Calc 134.0 Estimated GFR > 60 Random Glucose 86 (60-115) mg/dL Calcium 9.9 (8.4-10.2) mg/dL Total Bilirubin 0.3 (0.0-1.0) mg/dL AST 16 (5-31) U/L ALT 18 (0-31) U/L Alkaline Phosphatase 78 (39-117) U/L Total Protein 8.2 H (6.5-8.0) g/dL Albumin 5.0 (3.5-5.0) g/dL Beta HCG, Quant 50 mIU/mL Urine Color Yellow Urine Appearance Turbid Urine pH 7.0 (5.0-9.0) Ur Specific Singer 1.020 (1.005-1.025) Urine Protein Negative (Neg-Trace) mg/dL Urine Glucose (UA) Negative (Negative) mg/dL Urine Ketones Negative (Negative) mg/dL Urine Blood Large (3+) H (Negative) Urine Nitrite Negative (Negative) Ur Leukocyte Esterase Trace H (Negative) Blood Type O Positive Antibody Screen NEGATIVE Radiology Impression Discussion of test interpretation with radiology: I have reviewed the radiologist's reading. Radiologist Impression: CLINICAL HISTORY: elevated HCG, pain US OB 1st Trimester transabdominal and transvaginal Comparison: None provided Findings: No evidence of intrauterine . No intrauterine gestational sac, yolk sac or pole. Left ovary demonstrates a 1.3 x 0.9 x 1.4 cm thick wall cystic structure with peripheral hyperemia is seen. Additionally hyperechoic left ovarian lesion measuring 0.8 x 0.7 x 0.8 cm. Left ovary measures 2.6 x 1.3 x 2.8 cm. Right ovary measures 2.3 x 1.6 x 1.8 cm. A hyperechoic lesion within the right ovary measuring 0.4 x 0.3 x 0.5 cm IMPRESSION: No sonographic evidence of intrauterine . A 1.3 cm thick wall cystic structure within the left ovary with peripheral hyperemia. Differentials include corpus luteal cyst versus ectopic . Short-term follow-up is recommended with serial beta hCG. Bilateral adnexal hyperechoic subcentimeter lesions which may represent hemorrhagic cysts versus dermoid cyst. This document has been electronically signed by: Brittny Guzman MD on 04/20/2025 20:26:56 Discharge Plan Discharge Clinical Impression: with history of ectopic , Vaginal bleeding affecting early Patient Disposition: [facility] Transfer Details: [facility] by private car Additional Instructions: you are being transferred to [facility]. you should drive directly there. [address] [place] [id number]. It is possible that you are having a spontaneous miscarriage versus an ectopic . follow up with your OBGYN Prescriptions: No Action prednisone 20 mg tablet 60 mg PO DAILY 5 Days Qty: 15 0RF albuterol sulfate 90 mcg/actuation HFA aerosol inhaler 2 puff inhalation Q4-6H PRN (Reason: shortness of breath or wheezing) Qty: 8.5 0RF albuterol sulfate 2.5 mg /3 mL (0.083 %) solution for nebulization 2.5 mg inhalation Q4-6H PRN (Reason: shortness of breath or wheezing) Qty: 75 0RF ibuprofen 600 mg tablet 600 mg PO Q6H PRN (Reason: pain) Qty: 20 0RF levonorgestrel [Plan B One-Step] 1.5 mg tablet 1.5 mg PO ONCE Qty: 1 6RF Print Language: German
[2025-04-20 17:19] LABS: MANUAL DIFF FLAG NO
[2025-04-20 17:21] LABS: Hematocrit 38.0 % (37.0-47.0); Hemoglobin 12.9 g/dl (12.0-16.0); Imm Gran Abs Auto 0.03 X10*3/uL (0.00-0.03); Imm Gran Pct Auto 0.3 % (0.0-0.4); Lymphocytes Absolute Auto 2.1 X10*3/uL (1.2-4.9); Mean Corpuscular HGB Conc 33.9 g/dl (31.0-35.0); Mean Corpuscular Hemoglobin 28.9 pg (27.0-33.0); Mean Corpuscular Volume 85.0 fL (80.0-98.0); NRBC Abs Auto 0.000 X10*3/uL (0.0-0.012); NRBC Pct Auto 0.0 /100WBC (0.0-0.2); Platelet Count 366 X10*3/uL (160-400); Red Blood Count 4.47 X10*6/uL (4.20-5.50); White Blood Count 9.2 X10*3/uL (4.8-10.8)
[2025-04-20 17:28] LABS: INTERNATIONAL NORM RATIO 1.1 (0.9-1.1); Prothrombin Time 13.2 SEC (11.2-13.5)
[2025-04-20 17:42] LABS: Alanine Aminotransferase 18 U/L (0-31); Albumin Level 5.0 g/dL (3.5-5.0); Alkaline Phosphatase 78 U/L (39-117); Anion Gap 10 (12-20); Aspartate Amino Transferase 16 U/L (5-31); Blood Urea Nitrogen 13 mg/dL (9-16); Calcium 9.9 mg/dL (8.4-10.2); Carbon Dioxide 27 mmol/L (22-29); Chloride 108 mmol/L (96-108); Creatinine Clr Calc Pharmacy 134.0; Estimated Glomerular Filt Rate > 60; Potassium 3.8 mmol/L (3.3-5.1); Sodium 141 mmol/L (135-145); Total Protein 8.2 g/dL (6.5-8.0)
[2025-04-20 20:12] VITALS: BP 112/57; PULSE 75; RESP 14; TEMP 36.8; O2SAT 97
--- OUTSIDE RECORDS SUMMARY | 2025-04-20 20:27 | XMS_ITS | Clinical Summary ---
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 Name Role Phone Physician, No Pcp Primary Care Provider Unavaila ble Allergies No known active allergies Medications No known medications Active Problems No known active problems Encounters Date Type Department Care Team Description 03/09/2025 4:46 PM EDT - 03/09/2025 7:43 PM EDT Emergency [facility] Emergency [address] [place] [phone] John Logan DO Right lower quadrant abdominal pain (Primary Dx); Possible Discharge Disposition: Home or Self Care from Last 3 Months Surgical History Surgery Date Site/Laterality Comments OTHER SURGICAL HISTORY PROCEDURE:right salpingectomy WISDOM TOOTH EXTRACTION PROCEDURE:WISDOM TOOTH EXTRACTION Medical History Medical History Date Comments Ectopic DX:Ectopic pre gnancy Bipolar 1 disorder (CMS/HCC V24, CMS/HCC V28) DX:Bipolar 1 disorder ([facility]) Depression DX:Depression Adhd DX:ADHD Anxiety DX:Anxiety Family History Medical History Relation Name Comments No Known Problems Mother Relation Name Status Comments Mother Alive Social History Tobacco Use Types Packs/Day Years Used Date Smoking Tobacco: Never Smokeless Tobacco: Never Alcohol Use Standard Drinks/Week Comments Yes 0 (1 standard drink = 0.6 oz pur e alcohol) Comments Unknown Sex and Gender Information Value Date Recorded Sex Assigned at Not on file Legal Sex Female 5:42 AM EST Gender Identity Not on file Sexual Orientation Not on file Obstetrics History Last Filed Vital Signs Vital Sign Reading Time Taken Comments Blood Pressure 102/58 03/09/2025 6:49 PM EDT Pulse 69 03/09/2025 6:49 PM EDT Temperature 36.7 C (98.1 F) 03/09/2025 6:49 PM EDT Respiratory Rate 18 03/09/2025 6:49 PM EDT Oxygen Saturation 97% 03/09/2025 6:49 PM EDT Inhaled Oxygen Concentration - - Weight - - Height - - Body Mass Index - - Plan of Treatment Health Maintenance Due Date Last Done Comments Gonorrhea/Chlamydia Screening 2002 Pneumococcal Vaccine: Pediatrics (0 to 5 Years) and At-Risk Patients (6 to 49 Years) (1 of 1 - PPSV23, PCV20, or PCV21) 2008 04/30/2003, 2002, 2002 Meningococcal B Vaccine (1 of 2 - Standard) 2018 HIV Screening 04/19/2022 Social Influencers of Health Screening 04/19/2022 Cervical Cancer Screening: Pap Smear 2023 Depression Screening 05/17/2024 COVID-19 Vaccine ( season) 2025 07/15/2022, 02/18/2022, 01/21/2022 Influenza Vaccine (#1) 2025 07/15/2022, 2006 Cholesterol Screening (Lipid Panel) 04/11/2029 04/11/2024 DTaP,Tdap,and Td Vaccines (8 - Td or Tdap) 07/15/2032 07/15/2022, 05/31/2013, 04/26/2006, Additional history exists RSV Immunization Adult Patients (1 - 1-dose 75+ series) 2077 Hepatitis B Vaccines Completed 2002, 2002, 2002 HIB Vaccines Completed 10/29/2003, 08/16, 2002 IPV Vaccines Completed 04/26/2006, 0712/2002, 2002, Additional history exists MMR Vaccines Completed 04/26/2006, 04/30/2003 Varicella Vaccines Completed 10/25/2007, 0 10/24/2005, 04/30/2003 Hepatitis A Vaccines Completed 05/31/2013, 10/25/2007, 04/04/2007 Meningococcal ACWY Vaccine Aged Out 05/31/2013 N o longer eligible based on patient's age to complete this topic HPV Vaccines Completed 12/07/2016, 04/03/2015 Hepatitis C Screening Completed 04/11/2024 RSV Immunization Patients Under 20 months Aged Out No longer eligible based on patient's age to complete this topic Procedures Procedure Name Priority Date/Time Associated Diagnosis Comments US PELVIS TRANSVAGINAL NON OB STAT 03/09/2025 6:24 PM EDT CBC WITH AUTO DIFFERENTIAL STAT 03/09/2025 5:14 PM EDT HCG, QUANTITATIVE STAT 03/09/2025 5:1 4 PM EDT ABO RH STAT 03/09/2025 5:14 PM EDT COMPREHENSIVE METABOLIC PANEL STAT 03/09/2025 5:14 PM EDT CBC AND DIFFERENTIAL STAT 03/09/2025 5:14 PM EDT from Last 3 Months Results * US Pelvis Transvaginal Non OB (03/09/2025 6:24 PM EDT) Anatomical Region Laterality Modality Body Ultrasound 03/09/2025 6:36 PM EDT Impressions 03/09/2025 6:38 PM EDT 1. No sonographic evidence of ovarian torsion. 2. Small amount of free fluid within the pelvis. O-RADS ultrasound category: 1: Normal Ovary Recommended Imaging Management: No follow-up necessary As per O-RADS Ultrasound v2022 guidelines, additional recommendations may include gynecology or ob gyn-oncologist follow-up for O-RADS categories 3-5. Report reviewed and signed by : Dr. Albert Florian MD on 03/09/2025 6:38 PM. Workstation Name - [id number] -------- FINAL REPORT -------- Dictated By: Albert Florian Dictated Date: 03/09/2025 18:36 ET Assigned Physician: Albert Florian Reviewed and Electronically Signed By: Albert Florian Signed Date: 03/09/2025 18:38 ET Workstation ID: [id number] Transcribed By: Self Edit Transcribed Date: 03/09/2025 18:36 ET Narrative 03/09/2025 6:38 PM EDT PROCEDURE: US PELVIS TRANSVAGINAL NON OB TECHNIQUE: Transvaginal ultrasound was performed. COMPARISON: Multiple priors, most recent 05/22/2019. Patient is premenopausal. FINDINGS: UTERUS: The uterus is within normal limits and measures 9.4 x 4.1 x 4.8 cm. CENTRAL ENDOMETRIAL CANAL: 1.2 cm RIGHT OVARY: The right ovary measures 2.6 x 3.0 x 2.0 cm. LEFT OVARY: The left ovary measures 2.3 x 2.1 x 1.7 cm. PELVIC FLUID: Small amount of free fluid is seen within the pelvis. OVARIAN DUPLEX DOPPLER VASCULAR EXAM: Color flow Doppler imaging demonstrates normal color flow to the right and left ovary. No Doppler was performed. Procedure Note Albert Florian MD - 03/09/2025 PROCEDURE: US PELVIS TRANSVAGINAL NON OB TECHNIQUE: Transvaginal ultrasound was performed. COMPARISON: Multiple priors, most recent 05/22/2019. Patient is premenopausal. FINDINGS: UTERUS: The uterus is within normal limits and measures 9.4 x 4.1 x 4.8cm. CENTRAL ENDOMETRIAL CANAL: 1.2 cm RIGHT OVARY: The right ovary measures 2.6 x 3.0 x 2.0 cm. LEFT OVARY: The left ovary measures 2.3 x 2.1 x 1.7 cm. PELVIC FLUID: Small amount of free fluid is seen within the pelvis. OVARIAN DUPLEX DOPPLER VASCULAR EXAM: Color flow Doppler imagingdemonstrates normal color flow to the right and left ovary. No Dopplerwas performed. IMPRESSION: 1. No sonographic evidence of ovarian torsion. 2. Small amount of free fluid within the pelvis. O-RADS ultrasound category: 1: Normal Ovary Recommended Imaging Management: No follow-up necessary As per O-RADS Ultrasound v2022 guidelines, additional recommendations mayinclude gynecology or ob gyn-oncologist follow-up for O-RADS categories3-5. Report reviewed and signed by : Dr. Albert Florian MD on 56:38 PM. Workstation Name - [id number] -------- FINAL REPORT -------- Dictated By: Albert Florian Dictated Date: 03/09/2025 18:36 ET Assigned Physician: Albert Florian Reviewed and Electronically Signed By: Albert Florian Signed Date: 03/09/2025 18:38 ET Workstation ID: [id number] Transcribed By: Self Edit Transcribed Date: 03/09/2025 18:36 ET us John Logan DO [facility] US PROCEDURES Final Result * (ABNORMAL) CBC auto differential (03/09/2025 5:14 PM EDT) [facility] WBC 9.0 4.0 - 10.5 K/mcL LAB HEMETOLOGY METHOD 03/09/2025 5:22 PM EDT [facility] RBC 4.31 4.20 - 5.40 M/mcL LAB HEMETOLOGY METHOD 03/09/2025 5:22 PM EDT [facility] Hemoglobin 12.7 12.5 - 16.0 g/dL LAB HEMETOLOGY METHOD 03/09/2025 5:22 PM EDT [facility] Hematocrit 36.8(L) 37.0 - 47.0 % LAB HEMETOLOGY METHOD 03/09/2025 5:22 PM EDT [facility] MCV 85.4 78.0 - 100.0 FL LAB HEMETOLOGY METHOD 03/09/2025 5:22 PM EDT [facility] MCH 29.5 27.0 - 31.0 pcg LAB HEMETOLOGY METHOD 03/09/2025 5:22 PM EDT [facility] MCHC 34.5 32.0 - 36.0 g/dL LAB HEMETOLOGY METHOD 03/09/2025 5:22 PM EDT [facility] RDW 11.8 11.5 - 14.0 % LAB HEMETOLOGY METHOD 03/09/2025 5:22 PM EDT [facility] Platelets 329 150 - 450 K/mcL LAB HEMETOLOGY METHOD 03/09/2025 5:22 PM EDT [facility] MPV 9.6 8.3 - 11.8 FL LAB HEMETOLOGY METHOD 03/09/2025 5:22 PM EDT [facility] Neutrophils Relative 62.7(H) 25.0 - 62.0 % LAB HEMETOLOGY METHOD 03/09/2025 5:22 PM EDT [facility] Basophils Relative 0.3 0.0 - 2.0 % LAB HEMETOLOGY METHOD 03/09/2025 5:22 PM EDT [facility] Eosinophils Relative 1.0 0.0 - 6.0 % LAB HEMETOLOGY METHOD 03/09/2025 5:22 PM EDT [facility] Lymphocytes Relative 27.9 20.0 - 48.0 % LAB HEMETOLOGY METHOD 03/09/2025 5:22 PM EDT [facility] Monocytes Relative 7.8 2.0 - 12.0 % LAB HEMETOLOGY METHOD 03/09/2025 5:22 PM EDT [facility] NRBC 0.0 0.0 - 1.0 % LAB HEMETOLOGY METHOD 03/09/2025 5:22 PM EDT [facility] Immature Granulocytes Relative 0.3 0.0 - 1.0 % LAB HEMETOLOGY METHOD 03/09/2025 5:22 PM EDT [facility] Immature Granulocytes Absolute 0.03 <0.10 K/mcL LAB HEMETOLOGY METHOD 03/09/2025 5:22 PM EDT [facility] Neutrophils Absolute 5.60 1.50 - 7.00 K/mcL LAB HEMETOLOGY METHOD 03/09/2025 5:22 PM EDT [facility] Basophils Absolute 0.03 0.00 - 0.20 K/[facility] LAB HEMETOLOGY METHOD 03/09/2025 5:22 PM EDT [facility] Eosinophils Absolute 0.09 0.00 - 0.60 K/[facility] LAB HEMETOLOGY METHOD 03/09/2025 5:22 PM EDT [facility] Lymphocytes Absolute 2.50 1.00 - 5.00 K/[facility] LAB HEMETOLOGY METHOD 03/09/2025 5:22 PM EDT [facility] Monocytes Absolute 0.70 0.10 - 1.20 K/[facility] LAB HEMETOLOGY METHOD 03/09/2025 5:22 PM EDT [facility] Blood Venous blood specimen / Unknown Venipuncture / Unknown 03/09/2025 5:14 PM EDT 03/09/2025 5:18 PM EDT [facility] BLOOD ORDERABLES Final Res ult [facility] [place] Reg. #: [id number] [address] [place] [address], * ABO Rh (03/09/2025 5:14 PM EDT) ABO Group O 03/09/2025 6:03 PM EDT [facility] Rh Type Positive 03/09/2025 6:03 PM EDT [facility] Blood Venous blood specimen / Unknown Venipuncture / Unknown 03/09/2025 5:14 PM EDT 03/09/2025 5:18 PM EDT [employer] LAB BLOOD BANK TEST ORDERABLES Final Result [facility] [address] [place] [address], [place] [phone] * HCG, quantitative (03/09/2025 5:14 PM EDT) hCG Quant <3 mIU/mL LAB CHEMISTRY METHOD 03/09/2025 5:35 PM EDT [facility] Blood Venous blood specimen / Unknown Venipuncture / Unknown 03/09/2025 5:14 PM EDT 03/09/2025 5:18 PM EDT Narrative [facility] - 03/09/2025 5:35 PM EDT Interpretive Data: Male: <2 mIU/mL Non- Female: <5 mIU/mL Postmenopausal Female: </= 10 mIU/mL Female: Approx. Gest. Age (wks) mIU/mL 0.2 to 1 5-50 1 to 2 50-500 2 to 3 100-5,000 3 to 4 500-10,000 4 to 5 1,000-50,000 5 to 6 10,000-100,000 6 to 8 15,000-200,000 8 to 12 10,000-100,000 Performed using Siemens [employer] Data Immunoassay methodology us John Logan DO LAB BLOOD ORDERABLES Final Res ult [facility] [place] Reg. #: [id number] [address] [place] [address], [place] [phone] * Comprehensive metabolic panel (03/09/2025 5:14 PM EDT) Pathologist [facility] Sodium 143 136 - 145 mmol/L LAB CHEMISTRY METHOD 03/09/2025 5:37 PM EDT [facility] Potassium 3.5 3.5 - 5.1 mmol/L LAB CHEMISTRY METHOD 03/09/2025 5:37 PM EDT [facility] Chloride 106 98 - 107 mmol/L LAB CHEMISTRY METHOD 03/09/2025 5:37 PM T [facility] CO2 27 20 - 31 mmol/L LAB CHEMISTRY METHOD 03/09/2025 5:37 PM [facility] Anion Gap 10 5 - 14 LAB CHEMISTRY METHOD 03/09/2025 5:37 PM EDT [facility] Glucose 75 70 - 199 mg/dL LAB CHEMISTRY METHOD 03/09/2025 5:37 PM [facility] BUN 10 9 - 23 mg/dL LAB CHEMISTRY METHOD 03/09/2025 5:37 PM [facility] Creatinine 0.76 0.55 - 1.02 mg/dL LAB CHEMISTRY METHOD 03/09/2025 5:37 PM [facility] eGFR 114 >=60 mL/min/1. 73m2 LAB CHEMISTRY METHOD 03/09/2025 5:37 PM T [facility] Comment:Calculation based on the Chronic Kidney Disease Epidemiology Collaboration (CKD-EPI) equation refit without adjustment for race. BUN/Creatinine Ratio 13.2 12.0 - 20.0 LAB CHEMISTRY METHOD 03/09/2025 5:37 PM [facility] Calcium 9.4 8.7 - 10.4 mg/dL LAB CHEMISTRY METHOD 03/09/2025 5:37 PM [facility] AST (SGOT) 18 <34 unit/L LAB CHEMISTRY METHOD 03/09/2025 5:37 PM [facility] ALT (SGPT) 19 10 - 49 unit/L LAB CHEMISTRY METHOD 03/09/2025 5:37 PM [facility] Alkaline Phosphatase 75 46 - 116 unit/L LAB CHEMISTRY METHOD 03/09/2025 5:37 PM [facility] Total Protein 7.9 5.7 - 8.2 g/dL LAB CHEMISTRY METHOD 03/09/2025 5:37 PM EDT [facility] Globulin, Total 3.5 2.3 - 3.5 g/dL LAB CHEMISTRY METHOD 03/09/2025 5:37 PM EDT [facility] A/G Ratio 1.3 1.0 - 1.7 LAB CHEMISTRY METHOD 03/09/2025 5:37 PM EDT [facility] Total Bilirubin 0.2 0.2 - 1.1 mg/dL LAB CHEMISTRY METHOD 03/09/2025 5:37 PM EDT [facility] Albumin 4.4 3.2 - 4.8 g/dL LAB CHEMISTRY METHOD 03/09/2025 5:37 PM EDT [facility] Blood Venous blood specimen / Unknown Venipuncture / Unknown 03/09/2025 5:14 PM EDT 03/09/2025 5:18 PM EDT us John Logan DO LAB BLOOD ORDERABLES Final Res ult [facility] [place] Reg. #: [id number] [address] [place] [address], [place] [phone] from Last 3 Months Insurance MEDICAID - [place] Care Teams Hot Knife Foxing Cutter Relationship Specialty Start Date End Date Physician, No Pcp PCP - General 03/09/25
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
--- OUTSIDE RECORDS SUMMARY | 2025-04-20 20:27 | XMS_ITS | Clinical Summary ---
Author Organization [facility] Address [address] [place] [address] Phone Care Team Providers Care [employer] Name Role Phone Pcp, Unknown Primary Care Provider Unavailabl e Social History Tobacco Use Types Packs/Day Years Used Date Smoking Tobacco: Never Assessed Education Answer Date Recorded Are you interested in more education? Not on alis e 02/07/2025 Are you concerned about learning? Not on file 02/07/2025 No 02/07/2025 No 02/07/2025 Digital Access Answer Date Recorded No 02/07/2025 No 02/07/2025 Reliable internet access at home? Not on file 02/07/2025 Device with a working camera? Not on file Comments Unknown Sex and Gender Information Value Date Recorded Sex Assigned at Not on file Legal Sex Female 10:22 AM EDT Gender Identity Not on file Sexual Orientation Not on file Plan of Treatment Upcoming Encounters Date Type Department Care Team (Late st Contact Info) Description 05/02/2025 2:30 PM EST Telephone [facility] [address] [place] [address] Randy Wright MD [address] [facility], [address] [place] [address] Health Maintenance Due Date Last Done Comments Adult Td,Tdap Booster 2002 DEPRESSION SCREENING 2014 SMOKING Hx and SMOKELESS TOB ACCO SCREENING 2015 HPV VACCINES (1 - 3-dose series) 2017 CHLAMYDIA SCREENING 2018 MENINGOCOCCAL VACCINES (B) ( 1 of 2 - Standard) 2018 HEPATITIS C SCREENING 2020 HIV ONE-TIME SCREENING (18-6 5 YEARS) 2020 PAP SMEAR 2023 INFLUENZA VACCINE (#1) 2024 COVID-19 VACCINE (2024-2 6 season) 2025 HEPATITIS A VACCINES Aged Out No long er eligible based on patient's age to complete this topic HIB VACCINES Aged Out No longer eligi ble based on patient's age to complete this topic MENINGOCOCCAL VACCINES (ACWY) Aged Out No longer eligible based on patient's age to complete this topic PNEUMOCOCCAL VACCINES (0-49 years) Aged Out No longer eligible based on patient's age to complete this topic Medical Devices Not on file Insurance C3 ACO C3 ACO C3 ACO C3 ACO C3 ACO [facility] C3 ACO Care Teams [employer] Relationship Specialty Start Date End Date Pcp, Unknown PCP - General 02/07/25 Additional Source Comments The information contained in this document represents components of the legal health record. It is not the complete legal health record.[facility]
--- OUTSIDE RECORDS SUMMARY | 2025-04-20 20:27 | XMS_ITS | Clinical Summary ---
Author Organization [employer] Address [address] [place] [address] Care Team Providers Care Oceanography Teacher Name Role Phone Unavailable Primary Care Provider Unavailabl e Allergies Active Allergy Reactions Criticality Noted Date Comments Latex 12/29/2023 Encounters Date Type Department Care Team Description 02/06/2025 Telephone [facility] [address] [place] [address] Kam Guthrie MD Chart Prep 01/31/2025 Patient Outreach [facility] [address] [place] [address] Kam Guthrie MD Pre-visit Planning (SDOH negative, Tobacco screening negative.) from Last 3 Months Immunizations Immunization Administration Dates Next Due DTaP 04/26/2006, 4,2002,2002,0 2002 Hep A, Unspecified 10/25/2007,04/04/2007 Hep B, Adolescent or Pediatric 2002,2002,2002 HiB, unspecified 10/29/2003 Hib (HbOC) 2002,2002 IPV 04/26/2006,2002,2002 ,2002 Influenza, IIV3, injectable 04/04/2007 MMR 04/26/2006,04/30/2003 Pneumococcal Conjugate PCV 7 04/30/2003,11/22/19 03,2002 Varicella 10/25/2007,04/30/2003 Social History Tobacco Use Types Packs/Day Years Used Date Smoking Tobacco: Never Assessed Housing Stability Answer Date Recorded What is your housing situation today? I have [place] 01/31/[address] you li ve. Do you have problems with any of the following? None of the above 01/31/2025 Food Insecurity Answer Date Recorded Within the past 12 months, y ou worried that your food would run out before you got money to buy more: Never True 01/31/2025 Within the past 12 months,th e food you bought just didn't last and you didn't have enough money to get more: Never True Transportation Answer Date Recorded In the past 12 months, has l ack of transportation kept you from medical appts, meetings, work or from getting things needed for daily living? No 01/31/2025 Utilities Answer Date Recorded In the past 12 months, has t he electric, gas, oil or water company threatened to shut off services in your home? No 01/31/2025 Internet Access Answer Date Recorded Internet Access Q1 Yes 01/31/2025 Internet Access Q2 Not on file 01/31/2025 Comments Unknown Sex and Gender Information Value Date Recorded Sex Assigned at Female 02/06/2025 9:20 AM EDT Legal Sex Female 1:18 PM EDT Gender Identity Female 02/06/2025 9:20 AM EDT Sexual Orientation Straight 02/06/2025 9: 20 AM EDT Plan of Treatment Health Maintenance Due Date Last Done Comments Depression Screening 2002 Disability Screening 2002 DTaP/Tdap/Td Vaccines (6 - Tdap) 2013 04/26/2006, 10/29/2003, 2002, Additional history exists Alcohol/Substance Use Screening 2014 Tobacco Screening 2014 Family Planning (PISQ) 2017 HPV Vaccines (1 - 3-dose series) 2017 Meningococcal B Vaccine (1 of 2 - Standard) 2018 Hepatitis C Screening 2020 Pneumococcal Vaccine: Pediatrics (0 to 5 Years) and At-Risk Patients (6 to 49) Years (1 of 2 - PCV) 2021 04/30/2003, 2002, 2002 Pap Smear 2023 COVID-19 Vaccine (1 - season) 2025 Influenza Vaccine (#1) 2025 04/04/2007 Chlamydia and Gonorrhea Screening 06/02/2025 06/02/2024, 06/02/2024, 06/02/2024, Additional history exists SDOH Screening 01/31/2026 01/31/2025 Zoster Vaccines (1 of 2) 2052 RSV Patients and Patients Aged 60 years or older (1 - 1-dose 75+ series) 2077 Hepatitis B Vaccines Completed 2002, 2002, 2002 HIB Vaccines Completed 10/29/2003, 08/16, 2002 IPV Vaccines Completed 04/26/2006, /0 12/2002, 2002, Additional history exists Hepatitis A Vaccines Completed 10/25/2007, 04/04/20 07 HIV Screening Completed 06/02/2024, 04/11/2024 Meningococcal Vaccine Aged Out No maude jerica eligible based on patient's age to complete this topic RSV under 20 months Aged Out No longe r eligible based on patient's age to complete this topic Rotavirus Vaccines Aged Out No longer eligible based on patient's age to complete this topic Insurance [facility] C3
[2025-04-20 21:24] LABS: Appearance Urine Turbid; Glucose Urine UA Negative (Negative); PH 7.0 (5.0-9.0); Specific Gravity - Urine 1.020 (1.005-1.025); UMIC TRIGGER UACC YES
--- NOTE | 2025-04-20 21:45 | P.CONOB_ITS ---
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 Patient states that she was told she is in early and needs to be evaluated for vaginal bleeding + abdominal pain. Patient states that she has had several pregnancies including miscarriages and 2 previous ectopics the other with a salpingectomy, no records available Workup done emergency room included the following: CBC, chemistry, with a normal HCG 50 compared to 49 yesterday according to the patient at an outside facility, no records available Blood type O positive Pelvic ultrasound showed the following: No sonographic evidence of intrauterine . A 1.3 cm thick wall cystic structure within the left ovary with peripheral hyperemia. Differentials include corpus luteal cyst versus ectopic . Short-term follow-up is recommended with serial beta hCG. Bilateral adnexal hyperechoic subcentimeter lesions which may represent hemorrhagic cysts versus dermoid cyst. 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 Physical Exam Vitals Vital signs: Temp Pulse Resp BP Pulse Ox O2 Del Method 98.2 F 75 14 112/57 L 97 Room Air 04/20/25 20:12 04/20/25 20:12 04/20/25 20:12 04/20/25 20:12 04/20/25 20:12 04/20/25 20:12 BMI result Body Mass Index 30.8 Additional Comments: Reported by ANIYA Godinez in the emergency room as the following: Abdominal exam soft nontender, pelvic exam minimal blood per vagina no adnexal tenderness or palpable with a mass MECHANICAL FIELD ENGINEER - Results Labs 04/20/25 17:15 04/20/25 17:15 Labs: Short CBC 04/20/25 Range/Units 17:15 WBC 9.2 (4.8-10.8) X10*3/uL Hgb 12.9 (12.0-16.0) g/dl Hct 38.0 (37.0-47.0) % Plt Count 366 (160-400) X10*3/uL BMP 04/20/25 17:15 Sodium 141 Potassium 3.8 Chloride 108 Carbon Dioxide 27 BUN 13 Creatinine 0.65 Calcium 9.9 Liver Function 04/20/25 Range/Units 17:15 Total Bilirubin 0.3 (0.0-1.0) mg/dL AST 16 (5-31) U/L ALT 18 (0-31) U/L Alkaline Phosphatase 78 (39-117) U/L Albumin 5.0 (3.5-5.0) g/dL Urine 04/20/25 Range/Units 21:08 Urine Color Yellow Urine Appearance Turbid Urine pH 7.0 (5.0-9.0) Ur Specific [place] 1.020 (1.005-1.025) Urine Protein Negative (Neg-Trace) mg/dL Urine Glucose (UA) Negative (Negative) mg/dL Antibody Screen Antibody Screen NEGATIVE 04/20/25 20:46 Assessment and Plan (1) with history of ectopic : Status: Acute Discussed the following with ANIYA Jimenez in the emergency: Differential diagnosis includes early , SAB or ectopic . Since the patient has 2 history of ectopic pregnancies the recurrence rate is high, with pelvic ultrasound showing possible ectopic , the patient could be a candidate for methotrexate Since there are no available RN's at [facility] certified for methotrexate injections , recommend transfer the patient for further evaluation to [facility]. I spent a total of 20 minutes reviewing the chart, communicating with the emergency room provider and documenting in the medical record.
[2025-04-20 22:39] VITALS: BP 112/57; PULSE 75; RESP 14; TEMP 36.8; O2SAT 97
== END 2025-04-20 22:44 | disposition short-term general hospital (02) ==
PROVIDERS: Physician Assistant Medical; Emergency Provider Emergency Medicine
DX: O20.9 Hemorrhage in early pregnancy, unspecified (principal); Z3A.12 12 weeks gestation of pregnancy; Z79.899 Other long term (current) drug therapy
CPT/HCPCS: 36415; 76801; 76817; 80053; 81001; 84702; 85025; 85610; 86850; 86900; 86901; 99285

== ENCOUNTER → 2025-04-20 18:10 | Outpatient (BNV) | payer MEDICAID, SELFPAY | PROVIDERS: Visit Provider Student in an Organized Health Care Education/Training Program | DX: N83.202 Unspecified ovarian cyst, left side (principal) | CPT/HCPCS: 76801; 76817 ==

== ENCOUNTER → 2025-04-20 20:16 | Outpatient (BNV) | payer MEDICAID, SELFPAY | PROVIDERS: Visit Provider Obstetrics & Gynecology | DX: O09.10 Supervision of pregnancy with history of ectopic pregnancy, unspecified trimester (principal) | CPT/HCPCS: 99223 ==